=== PATIENT | male | born 1955 | race Caucasian/White ===

== ENCOUNTER → 2021-02-11 12:18 | Outpatient (BNVA) | payer MEDICARE, OTHER, SELFPAY | PROVIDERS: Visit Provider Nurse Practitioner | DX: R53.83 Other fatigue (principal); B88.2 Other arthropod infestations | CPT/HCPCS: 85025; 86000; 86618; 86666; 86757 ==

== ENCOUNTER 2021-02-15 10:37 | Emergency (ER) | payer MEDICARE, OTHER, SELFPAY ==
[2021-02-15 11:08] VITALS: BP 126/83; PULSE 99; RESP 18; TEMP 36.5; O2SAT 90; BMI 39.8
[2021-02-15 11:20] VITALS: BP 126/83; PULSE 99; RESP 18; O2SAT 91
--- NOTE | 2021-02-15 11:25 | XRR_ITS ---
PROCEDURE INFORMATION: Exam: XR Chest Exam date and time: 02/15/2021 11:25 AM Age: 65 years old Clinical indication: Shortness of breath; Additional info: Cough, SOB TECHNIQUE: Imaging protocol: XR of the chest. Views: 1 view. COMPARISON: No relevant prior studies available. FINDINGS: Lungs: Multifocal bilateral patchy pulmonary opacities. These are most prominent in a peripheral distribution in the mid to lower lung merritt. Pleural spaces: Unremarkable. No pleural effusion. No pneumothorax. Heart/Mediastinum: Unremarkable. No cardiomegaly. Bones/joints: Unremarkable. XR/XR chest 1V portable [id number] IMPRESSION: There are patchy bilateral pulmonary opacities consistent with pneumonia.
--- NOTE | 2021-02-15 11:33 | ECG_ITS ---
[facility] Test Date: 2021-02-15 Pat Name: Angus Rutherford Department: Room: Gender: Male [employer] Machine: : 1955 Requested By: Mateus Ramirez I Order Number: [id number] Kaila MD: Renan Da Silva M.D. Measurements Intervals Gallion Rate: 115 P: GA: QRS: -4 QRSD: 81 T: -14 QT: 316 QTc: 438 Interpretive Statements ATRIAL FIBRILLATION WITH RAPID VENTRICULAR RESPONSE ABNORMAL RHYTHM ECG No previous ECG available for comparison Electronically Signed On 02-16-2021 9:43:02 CDT by Renan Da Silva M.D. [email or web address]
[2021-02-15 12:19] LABS: Basophils % 0.2 %; Hematocrit 48.6 % (42.0-52.0); Hemoglobin 16.3 g/dL (11.7-16.6); Lymphocytes % 30.9 %; Mean Corpuscular HGB Conc 33.5 g/dL (30.0-36.0); Mean Corpuscular Hemoglobin 31.3 pg (28.0-34.0); Mean Corpuscular Volume 93.3 fL (80-94); Mean Platelet Volume 11.2 fL (7.4-10.4); Monocytes # 0.2 10^3/uL (0.2-0.9); Monocytes % 3.6 %; Neutrophils # 3.78 10^3/uL (1.8-7.7); Neutrophils % 64.8 %; Nucleated Red Blood Cells % 0 %; Platelet Count 139 10^3/cmm (130-400); Red Blood Count 5.21 10^6/uL (4.1-5.3); Red Cell Distribution Width 12.5 % (12.1-15.1); White Blood Count 5.8 10^3/uL (4.0-10.0)
--- NOTE | 2021-02-15 12:41 | ED_ITS ---
HPI - General Adult General: Chief complaint: General Medical Stated complaint: body aches, possible tick fever Time Seen by Provider: 02/15/21 11:09 Source: patient and family () Mode of arrival: ambulatory Limitations: no limitations History of Present Illness: HPI narrative: Patient is a 65-year-old male who presents to the emergency department with generalized body aches, weakness, loss of appetite, loss of energy, and some shortness of breath. He states that shortly before his symptoms started he noticed the fatigue on his foot but he does not think he was fully large teen and it was not engorged. He saw his primary care provider who checked a tick panel on him and started him on doxycycline. Patient states that he has not obtained any significant improvemen t and per his he has been getting more sick. He denies a fever. He denies any sick exposures and has not had the Covid vaccine. He does think he may have had the infection in August 2019 Onset (ago): week(s) (2) Pain Consistency: constant Relieving factors: none Exacerbating factors: none Associated symptoms: Reports cough, decreased appetite, dyspnea, headache(s), malaise, nausea and short of breath; Deny chest pain, confusion, diaphoresis, fevers/chills, rash, palpitations, seizures, syncope or vomiting Treatments prior to arrival: none Review of Systems General: Reports: 10 or more systems reviewed and unremarkable except in HPI and below Const: Reports: malaise; Denies: diaphoresis Card: Denies: chest pain, palpitations or syncope Resp: Reports: dyspnea GI: Reports: nausea; Denies: vomiting Skin/Breast: Denies: rash Neuro: Reports: headache(s); Denies: confusion PFSH ED PFSH: Social History (Reviewed 02/16/21 @ 01:01 by Mateus Ramirez MD, [facility]) Smoking and tobacco status: never smoked Physical Exam Const: COMMON NORMALS: no acute distress, average body habitus, patient oriented x3, no limitations, healthy appearing, alert and well nourished HENMT: COMMON NORMALS: normocephalic, atraumatic and moist oral mucous membranes HEAD & SCALP: normocephalic and atraumatic Neck/C-Spine: COMMON NORMALS: no meningeal signs and no JVD Resp: COMMON NORMALS: normal respiratory effort, No retractions, No use of accessory muscles, clear to auscultation bilaterally and percussion normal AUSCULTATION: clear to auscultation bilaterally PERCUSSION: percussion normal Cardio: COMMON NORMALS: no JVD, regular rate, regular rhythm, S1 normal heart sound present, S2 normal heart sound present, No gallops present (Cardio), No clicks present (Cardio), No murmurs present (Cardio), No rub (Cardio) and Peripheral pulses 2+ throughout RATE: regular rate RHYTHM: regular rhythm HEART SOUNDS: S1 normal heart sound present and S2 normal heart sound present PERIPHERAL PULSES: Peripheral pulses 2+ throughout GI: COMMON NORMALS: Normal to inspection, nondistended, normoactive bowel sounds present, Soft to palpation, non-tender, No hepatosplenomegaly present, no masses and no bruits PALPATION: Yes Soft to palpation and Yes No hepatosplenomegaly present Extremity: COMMON NORMALS: normal to inspection, full ROM, capillary refill normal, no calf tenderness and no pedal edema Neuro: COMMON NORMALS: patient oriented x3 SENSORIUM/ORIENTATION: Yes alert MENINGEAL SIGNS: Yes no meningeal signs Skin: COMMON NORMALS: no rashes or lesions noted, no wounds, turgor normal, no jaundice, no petechiae and no mottling GENERAL SKIN EXAM: no rashes or lesions noted and turgor normal Course Reevaluation(s): Reevaluation #1: Discussed his lab and imaging findings with him. Explained that he is positive for COVID-19. Because his D-dimer is significantly elevated I advised that we obtain a CTA of his chest to rule out a PE. Also discussed disposition. Offered him hospital admission since he is hypoxic, however the patient declined and would like to be discharged home with home oxygen. He understands to return for any worsening symptoms. Time: 14:35 Reevaluation #2: Discussed the CTA findings with him, negative for PE but shows signs of Covid pneumonia. He still wants to be discharged home and I will discharge him home with a prescription for dexamethasone since his inflammatory markers are higher. Time: 17:41 Vital Signs: Vital signs: Vital Signs Temperature 97.7 F 02/15/21 11:08 Pulse Rate 108 H 02/15/21 16:50 Respiratory Rate 27 H 02/15/21 16:50 Blood Pressure 127/75 02/15/21 16:50 Pulse Oximetry 92 02/15/21 16:50 MDM - General Adult MDM Narrative: Medical decision making narrative: 65-year-old male who presents to the emergency department with body aches and feeling unwell. He thinks he may have taken fever. Evaluation in the emergency department is shows that he tested positive for COVID-19. D-dimer was also significantly elevated and a CTA of his chest done was negative for PE but does show his Covid pneumonia. Patient opted not to be admitted to the hospital and wants to be treated on an outpatient basis. He understands to monitor his pulse oximetry and to return for any worsening symptoms. Medical Records: Attestation: I reviewed the patient's medical records. Lab Data: Attestation: I reviewed the patient's lab results. Labs: Lab Results 02/15/21 02/15/21 02/15/21 Range/Units 11:58 11:58 11:58 WBC 5.8 (4.0-10.0) 10^3/ uL RBC 5.21 (4.1-5.3) 10^6/u L Hgb 16.3 (11.7-16.6) g/dL Hct 48.6 (42.0-52.0) % MCV 93.3 (80-94) fL MCH 31.3 (28.0-34.0) pg MCHC 33.5 (30.0-36.0) g/dL RDW 12.5 (12.1-15.1) % Plt Count 139 (130-400) 10^3/c mm MPV 11.2 H (7.4-10.4) fL Neut % (Auto) 64.8 % Lymph % (Auto) 30.9 % [place] % (Auto) 3.6 % Eos % (Auto) 0.0 % Baso % (Auto) 0.2 % Neut # (Auto) 3.78 (1.8-7.7) 10^3/u L Lymph # (Auto) 1.8 (0.8-4.8) 10^3/u L [place] # (Auto) 0.2 (0.2-0.9) 10^3/u L Eos # (Auto) 0.0 (0.0-0.8) 10^3/u L Baso # (Auto) 0.0 (0.0-0.1) 10^3/u L Nucleated RBC % (a uto) 0 % Nucleated RBCs # 0.0 /100WBC D-Dimer (0-0.59) ug/mIFE U Sodium 133 L (136-145) mmol/L Potassium 4.0 (3.5-5.1) mmol/L Chloride 99 (98-107) mmol/L Carbon Dioxide 23 (22-29) mmol/L Anion Gap 15.0 (5-19) BUN 15 (8-23) mg/dL Creatinine 1.2 (0.7-1.2) mg/dL GFR Calculation 60.8 L (90-130) mL/min Glucose 117 H (65-115) mg/dL Calculated Osmolal ity 278 L (285-295) mOsm/k g Lactic Acid 1.9 (0.5-2.2) mmol/L Calcium 8.6 (8.5-10.5) mg/dL Total Bilirubin 0.8 (0.15-1.2) mg/dL AST 84 H (0-40) U/L ALT 48 H (0-41) U/L Alkaline Phosphata se 58 (40-130) IU/L C-Reactive Protein 39.8 H (0.0-4.9) mg/L Total Protein 6.6 (6.6-8.7) g/dL Albumin 3.5 (3.5-5.2) g/dL Globulin 3.1 (1.3-4.6) g/dL Procalcitonin 0.23 (0-0.5) ng/mL Influenza Type A A g (Negative) Influenza Type B A g (Negative) SARS-CoV-2 Ag (Rap id) (Negative) 02/15/21 02/15/21 02/15/21 Range/Units 12:00 12:00 13:10 WBC (4.0-10.0) 10^3/ uL RBC (4.1-5.3) 10^6/u L Hgb (11.7-16.6) g/dL Hct (42.0-52.0) % MCV (80-94) fL MCH (28.0-34.0) pg MCHC (30.0-36.0) g/dL RDW (12.1-15.1) % Plt Count (130-400) 10^3/c mm MPV (7.4-10.4) fL Neut % (Auto) % Lymph % (Auto) % Concord[place] % (Auto) % Eos % (Auto) % Baso % (Auto) % Neut # (Auto) (1.8-7.7) 10^3/u L Lymph # (Auto) (0.8-4.8) 10^3/u L Concordia # (Auto) (0.2-0.9) 10^3/u L Eos # (Auto) (0.0-0.8) 10^3/u L Baso # (Auto) (0.0-0.1) 10^3/u L Nucleated RBC % (a uto) % Nucleated RBCs # /100WBC D-Dimer 3.61 H (0-0.59) ug/mIFE U Sodium (136-145) mmol/L Potassium (3.5-5.1) mmol/L Chloride (98-107) mmol/L Carbon Dioxide (22-29) mmol/L Anion Gap (5-19) BUN (8-23) mg/dL Creatinine (0.7-1.2) mg/dL GFR Calculation (90-130) mL/min Glucose (65-115) mg/dL Calculated Osmolal ity (285-295) mOsm/k g Lactic Acid (0.5-2.2) mmol/L Calcium (8.5-10.5) mg/dL Total Bilirubin (0.15-1.2) mg/dL AST (0-40) U/L ALT (0-41) U/L Alkaline Phosphata se (40-130) IU/L C-Reactive Protein (0.0-4.9) mg/L Total Protein (6.6-8.7) g/dL Albumin (3.5-5.2) g/dL Globulin (1.3-4.6) g/dL Procalcitonin (0-0.5) ng/mL Influenza Type A A g Negative (Negative) Influenza Type B A g Negative (Negative) SARS-CoV-2 Ag (Rap id) Positive H (Negative) Imaging Data^: CTA Chest: Attestation: I personally reviewed and interpreted this imaging study as follows: Radiologist's impression: [id number], [place] [id number] Scan ReportSigned Patient: Angus Rutherford #: [id number]: 5Acct#:[id number]/Sex: 65 / MADM Date: 02/15/21Loc: ERRoom/Bed:Attending Dr: Ordering Provider/Ordering MD: Mateus Ramirez MD, [facility] Date of Service: 02/15/21 Procedure(s): CT angio chest PE protcl [id number] Accession Number(s): [id number] Report Number: [id number] PROCEDURE INFORMATION: Exam: CTA Chest With Contrast Exam date and time: 02/15/2021 2:34 PM Age: 65 years old Clinical indication: Shortness of breath; Additional info: Covid +, elevated d-dimer, SOB, hypoxia TECHNIQUE: Imaging protocol: Computed tomographic angiography of the chest with contrast. 3D rendering (Not supervised by radiologist): MIP and/or 3D reconstructed images were created by the technologist. Radiation optimization: All CT scans at this facility use at least one of these dose optimization techniques: automated exposure control; mA and/or kV adjustment per patient size (includes targeted exams where dose is matched to clinical indication); or iterative reconstruction. Contrast material: OMNI 350; Contrast volume: 86 ml; Contrast route: INTRAVENOUS (IV); COMPARISON: CR (CHEST, ) 02/15/2021 12:33 PM RADIATION DOSE METRICS: Total DLP (mGy-cm): 548.61 FINDINGS: Pulmonary arteries: Normal. No pulmonary emboli. Aorta: Unremarkable. No aortic aneurysm. No aortic dissection. Lungs: Multifocal bilateral patchy pulmonary infiltrates primarily in a peripheral distribution. Pleural spaces: Unremarkable. No pneumothorax. No pleural effusion. Heart: Unremarkable. No cardiomegaly. No pericardial effusion. Mediastinal space: There are postoperative changes at the gastroesophageal junction and proximal stomach. Lymph nodes: Unremarkable. No enlarged lymph nodes. Bones/joints: Unremarkable. No acute fracture. Soft tissues: Unremarkable. CT/CT angio chest PE protcl [id number] IMPRESSION: Multifocal bilateral patchy pulmonary infiltrates primarily in a peripheral distribution.Commonly reported imaging features of COVID-19 pneumonia are present. Other processes such as influenza pneumonia and organizing pneumonia, as can be seen with drug toxicity and connective tissue disease, can cause a similar imaging pattern. (Reference: Leeroy) REFERENCES: Leeroy S, et al., Radiological Society of [place] Unique Expert Consensus Statement on Reporting Chest CT Findings Related to COVID-19. Endorsed by the Society of Thoracic Radiology, the [place] [employer], and RSNA. Published November 15, 2019. Radiation Dose CTDIVOL = (mGy): DLP = 548.61 (mGy-cm) Dictated By:Gardenia Garcia MDSigned By:Gardenia Garcia MDSigned Date/Time:02/15/21 1724DD/ 1723 CXR: Attestation: I personally reviewed and interpreted this imaging study as follows: Radiologist's impression: [address] [id number] ReportSigned Patient: Angus Rutherford #: [id number]: 5Acct#:[id number]/Sex: 65 / MADM Date: 02/15/21Loc: ERRoom/Bed:Attending Dr: Ordering Provider/Ordering MD: Mateus Ramirez MD, [facility] Date of Service: 02/15/21 Procedure(s): XR chest 1V portable [id number] Accession Number(s): [id number] Report Number: [id number] PROCEDURE INFORMATION: Exam: XR Chest Exam date and time: 02/15/2021 11:25 AM Age: 65 years old Clinical indication: Shortness of breath; Additional info: Cough, SOB TECHNIQUE: Imaging protocol: XR of the chest. Views: 1 view. COMPARISON: No relevant prior studies available. FINDINGS: Lungs: Multifocal bilateral patchy pulmonary opacities. These are most prominent in a peripheral distribution in the mid to lower lung merritt. Pleural spaces: Unremarkable. No pleural effusion. No pneumothorax. Heart/Mediastinum: Unremarkable. No cardiomegaly. Bones/joints: Unremarkable. XR/XR chest 1V portable [id number] IMPRESSION: There are patchy bilateral pulmonary opacities consistent with pneumonia. Dictated By:Gardenia Garcia MDSigned By:Gardenia Garcia MDSigned Date/Time:02/15/21 1355DD/ 1353 EKG Data^: EKG 1: Attestation: I personally reviewed and interpreted this EKG as follows: EKG interpretation date: 02/15/21 EKG interpretation time: 11:42 Prior EKG tracings: not available for review Interpretation: Atrial fibrillation with RVR. Heart rate [address] changes. Computer generated interpretation: Chest X-Ray 02/15/21 11:25 IMPRESSION: There are patchy bilateral pulmonary opacities consistent with pneumonia. Chest CTA 02/15/21 14:34 IMPRESSION: Multifocal bilateral patchy pulmonary infiltrates primarily in a peripheral distribution.Commonly reported imaging features of COVID-19 pneumonia are present. Other processes such as influenza pneumonia and organizing pneumonia, as can be seen with drug toxicity and connective tissue disease, can cause a similar imaging pattern. (Reference: Leeroy) REFERENCES: Leeroy Davis et al., Radiological Society of [place] Unique Expert Consensus Statement on Reporting Chest CT Findings Related to COVID-19. Endorsed by the Society of Thoracic Radiology, the [place] [employer], and RSNA. Published November 15, 2019. Radiation Dose CTDIVOL = (mGy): DLP = 548.61 (mGy-cm) Discharge Plan Discharge Patient Disposition: Home Clinical Impression: Pneumonia due to 2019 novel coronavirus, Hypoxia Condition: Stable Prescriptions: New dexamethasone 6 mg tablet 6 mg PO DAILY Qty: 10 RF: 0 Continued doxycycline hyclate 100 mg capsule 100 mg PO BID 10 Days Qty: 20 RF: 0 Discharge Orders: Discharge ED (Routine); Ordered 02/15/21 Ordered By: Mateus Ramirez Other Ambulatory Orders: DME: Oxygen (Order) Location: None Selected Ordered By: Mateus Ramirez Discharge Diet: Usual diet Discharge Activity: Increase activity as tolerated Patient Instructions: Viral Pneumonia (ED) Activity Restrictions/Additional Instructions: Return for any new or worsening symptoms, especially if your oxygen level remains below 90% for sustained periods. Use the oxygen as prescribed to keep your oxygen saturations up. Follow-up with your primary care provider by telemedicine within 3 days for further evaluation. Take the steroids as prescribed. You need to quarantine for 14 days after symptoms started. Coding Level of Care Code ED Configuration Management Specialist for Roshan Leal
[2021-02-15 12:46] LABS: Alanine Aminotransferase 48 U/L (0-41); Albumin Level 3.5 g/dL (3.5-5.2); Alkaline Phosphatase 58 IU/L (40-130); Aspartate Amino Transferase 84 U/L (0-40); Blood Urea Nitrogen 15 mg/dL (8-23); C Reactive Protein 39.8 mg/L (0.0-4.9); Calcium 8.6 mg/dL (8.5-10.5); Carbon Dioxide 23 mmol/L (22-29); Chloride 99 mmol/L (98-107); Globulin 3.1 g/dL (1.3-4.6); Glomerular Filtration Rate 60.8 mL/min (90-130); Glucose 117 mg/dL (65-115); Osmolality Calculated 278 mOsm/kg (285-295); Sodium 133 mmol/L (136-145); Total Bilirubin 0.8 mg/dL (0.15-1.2); Total Protein 6.6 g/dL (6.6-8.7)
[2021-02-15 12:47] LABS: Lactic Sepsis W/Reflex 1.9 mmol/L (0.5-2.2)
[2021-02-15 12:50] LABS: SARS Covid-2 Antigen Positive (Negative)
[2021-02-15 12:51] LABS: Slide Review Slide Review Perform
[2021-02-15 12:53] LABS: Procalcitonin 0.23 ng/mL (0-0.5)
[2021-02-15 13:06] LABS: Influenza A by IFA Negative (Negative); Influenza B by IFA Negative (Negative)
[2021-02-15 13:49] LABS: D Dimer 3.61 ug/mIFEU (0-0.59)
[2021-02-15 13:52] LABS: Lymphocytes # 1.8 10^3/uL (0.8-4.8)
[2021-02-15 14:03] VITALS: BP 134/94; PULSE 128; RESP 22; O2SAT 89
[2021-02-15 14:07] VITALS: O2SAT 92
--- NOTE | 2021-02-15 14:09 | PC.NURSE ---
notified Dr. Lord of pt's O2 saturation of 89% on RA and application of 2LNC;
--- NOTE | 2021-02-15 14:34 | CTR_ITS ---
PROCEDURE INFORMATION: Exam: CTA Chest With Contrast Exam date and time: 02/15/2021 2:34 PM Age: 65 years old Clinical indication: Shortness of breath; Additional info: Covid +, elevated d-dimer, SOB, hypoxia TECHNIQUE: Imaging protocol: Computed tomographic angiography of the chest with contrast. 3D rendering (Not supervised by radiologist): MIP and/or 3D reconstructed images were created by the technologist. Radiation optimization: All CT scans at this facility use at least one of these dose optimization techniques: automated exposure control; mA and/or kV adjustment per patient size (includes targeted exams where dose is matched to clinical indication); or iterative reconstruction. Contrast material: OMNI 350; Contrast volume: 86 ml; Contrast route: INTRAVENOUS (IV); COMPARISON: CR (CHEST, ) 02/15/2021 12:33 PM RADIATION DOSE METRICS: Total DLP (mGy-cm): 548.61 FINDINGS: Pulmonary arteries: Normal. No pulmonary emboli. Aorta: Unremarkable. No aortic aneurysm. No aortic dissection. Lungs: Multifocal bilateral patchy pulmonary infiltrates primarily in a peripheral distribution. Pleural spaces: Unremarkable. No pneumothorax. No pleural effusion. Heart: Unremarkable. No cardiomegaly. No pericardial effusion. Mediastinal space: There are postoperative changes at the gastroesophageal junction and proximal stomach. Lymph nodes: Unremarkable. No enlarged lymph nodes. Bones/joints: Unremarkable. No acute fracture. Soft tissues: Unremarkable. CT/CT angio chest PE protcl [id number] IMPRESSION: Multifocal bilateral patchy pulmonary infiltrates primarily in a peripheral distribution.Commonly reported imaging features of COVID-19 pneumonia are present. Other processes such as influenza pneumonia and organizing pneumonia, as can be seen with drug toxicity and connective tissue disease, can cause a similar imaging pattern. (Reference: Leeroy) REFERENCES: Leeroy Davis et al., Radiological Society [place] Expert Consensus Statement on Reporting Chest CT Findings Related to COVID-19. Endorsed by the Society of Thoracic Radiology, the [place] [employer], and RSNA. Published November 15, 2019. Radiation Dose CTDIVOL = (mGy): DLP = 548.61 (mGy-cm)
[2021-02-15 16:50] VITALS: BP 127/75; PULSE 108; RESP 27; O2SAT 92
[2021-02-15] MEDS: iohexol 350 mg/mL 100 mL Btl IV (17:09)
== END 2021-02-15 18:18 | disposition home or self-care (01) ==
PROVIDERS: Emergency Provider Family Medicine
DX: U07.1 COVID-19 (principal); J12.82 Pneumonia due to coronavirus disease 2019; R09.02 Hypoxemia
CPT/HCPCS: 71045; 71275; 80053; 83605; 84145; 85025; 85378; 86140; 87426; 87804; 93005; 99284; Q9967

== ENCOUNTER 2021-05-05 12:36 | Outpatient (CLI) | payer MEDICARE, OTHER, SELFPAY ==
[2021-05-05 13:06] LABS: Hematocrit 62.1 % (42.0-52.0); Hemoglobin 18.1 g/dL (11.7-16.6); Mean Corpuscular HGB Conc 29.1 g/dL (30.0-36.0); Mean Corpuscular Hemoglobin 29.6 pg (28.0-34.0); Mean Corpuscular Volume 101.6 fl (80-94); Platelet Count 72 10^3/cmm (130-400); Red Blood Count 6.11 10^6/uL (4.1-5.3); Red Cell Distribution Width 18.8 % (12.1-15.1); White Blood Count 1.9 10^3/uL (4.0-10.0)
[2021-05-05 14:11] LABS: Lymphocytes 43 %; Segmented Neutrophils 54 %; Total Cells Counted 100 (0-100)
[2021-05-05 14:12] LABS: Absolute Neutrophil 1.1 10^3/cmm (1.4-6.5); Eosinophils 0 %; Lymphocytes Absolute 0.8 10^3/cmm (1.2-3.4); Platelet Estimate Decreased (Normal)
== END 2021-05-05 12:37 | disposition home or self-care (01) ==
LOC: LAB 12:41
PROVIDERS: Visit Provider Physical Medicine & Rehabilitation
DX: U07.1 COVID-19 (principal); E11.9 Type 2 diabetes mellitus without complications; I10 Essential (primary) hypertension; Z79.899 Other long term (current) drug therapy; G62.9 Polyneuropathy, unspecified
CPT/HCPCS: 85007; 85027

== ENCOUNTER 2021-05-06 09:53 | Outpatient (CLI) | payer MEDICARE, OTHER, SELFPAY ==
[2021-05-06 10:27] LABS: Alanine Aminotransferase 10 U/L (0-41); Albumin Level 3.1 g/dL (3.5-5.2); Alkaline Phosphatase 81 IU/L (40-130); Anion Gap 14.1 (5-19); Aspartate Amino Transferase 19 U/L (0-40); Blood Urea Nitrogen 6 mg/dL (8-23); C Reactive Protein 2.1 mg/L (0.0-4.9); Calcium 8.6 mg/dL (8.5-10.5); Carbon Dioxide 25 mmol/L (22-29); Chloride 107 mmol/L (98-107); Globulin 3.2 g/dL (1.3-4.6); Glomerular Filtration Rate 134.8 mL/min (90-130); Glucose 67 mg/dL (65-115); Osmolality Calculated 292 mOsm/kg (285-295); Potassium 3.1 mmol/L (3.5-5.1); Sodium 143 mmol/L (136-145); Total Bilirubin 0.3 mg/dL (0.15-1.2); Total Protein 6.3 g/dL (6.6-8.7)
== END 2021-05-06 09:54 | disposition home or self-care (01) ==
PROVIDERS: PCP Physical Medicine & Rehabilitation; Visit Provider Physical Medicine & Rehabilitation
DX: U07.1 COVID-19 (principal); E11.9 Type 2 diabetes mellitus without complications; I10 Essential (primary) hypertension; G62.9 Polyneuropathy, unspecified
CPT/HCPCS: 80053; 80202; 86140

== ENCOUNTER 2021-05-12 13:04 | Outpatient (CLI) | payer MEDICARE, OTHER, SELFPAY ==
[2021-05-12 13:39] LABS: Hematocrit 40.2 % (42.0-52.0); Hemoglobin 12.4 g/dL (11.7-16.6); Mean Corpuscular HGB Conc 30.8 g/dL (30.0-36.0); Mean Corpuscular Hemoglobin 29.2 pg (28.0-34.0); Mean Corpuscular Volume 94.6 fl (80-94); Mean Platelet Volume 11.3 fL (7.4-10.4); Platelet Count 244 10^3/cmm (130-400); Red Blood Count 4.25 10^6/uL (4.1-5.3); Red Cell Distribution Width 16.8 % (12.1-15.1); White Blood Count 6.3 10^3/uL (4.0-10.0)
[2021-05-12 14:01] LABS: Absolute Segmented Neutrophil 2.3 10/cmm (1.6-7.1); Segmented Neutrophils 36 %; Total Cells Counted 100 (0-100)
[2021-05-12 14:02] LABS: Absolute Eosinophils 0.1 10^3/cmm (0.0-0.7); Absolute Neutrophil 2.3 10^3/cmm (1.4-6.5); Band Neutrophils Absolute 0.1 10^3/cmm (0.0-1.2); Eosinophils 3 %; Lymphocytes 57 %; Lymphocytes Absolute 3.6 10^3/cmm (1.2-3.4); Monocytes Absolute 0.2 10^3/cmm (0.1-0.6); Platelet Estimate Normal (Normal)
[2021-05-12 14:09] LABS: Alanine Aminotransferase 9 U/L (0-41); Albumin Level 3.3 g/dL (3.5-5.2); Alkaline Phosphatase 77 IU/L (40-130); Anion Gap 13.6 (5-19); Aspartate Amino Transferase 16 U/L (0-40); Blood Urea Nitrogen 6 mg/dL (8-23); C Reactive Protein 2.3 mg/L (0.0-4.9); Carbon Dioxide 25 mmol/L (22-29); Chloride 107 mmol/L (98-107); Glomerular Filtration Rate 166.4 mL/min (90-130); Glucose 85 mg/dL (65-115); Osmolality Calculated 291 mOsm/kg (285-295); Potassium 3.6 mmol/L (3.5-5.1); Sodium 142 mmol/L (136-145); Total Bilirubin 0.2 mg/dL (0.15-1.2); Total Protein 6.3 g/dL (6.6-8.7); Vancomycin Trough 20.7 ug/mL (10-15)
== END 2021-05-12 13:05 | disposition home or self-care (01) ==
LOC: LAB 13:11
PROVIDERS: PCP Physical Medicine & Rehabilitation; Visit Provider Physical Medicine & Rehabilitation
DX: M86.9 Osteomyelitis, unspecified; J18.9 Pneumonia, unspecified organism; U07.1 COVID-19
CPT/HCPCS: 80053; 80202; 85007; 85027; 86140

== ENCOUNTER 2021-07-21 14:13 | Outpatient (CLI) | payer MEDICARE, OTHER, SELFPAY | END 2021-07-21 14:14 | disposition home or self-care (01) | LOC: WOUND 14:14 | PROVIDERS: PCP Physical Medicine & Rehabilitation; Visit Provider Emergency Medicine | DX: L89.154 Pressure ulcer of sacral region, stage 4 (principal) | CPT/HCPCS: 11043; 97605; A6237; A6250; G0463 ==

== ENCOUNTER 2021-07-28 13:53 | Outpatient (CLI) | payer MEDICARE, OTHER, SELFPAY | END 2021-07-28 13:54 | disposition home or self-care (01) | LOC: WOUND 13:54 | PROVIDERS: PCP Physical Medicine & Rehabilitation; Visit Provider Nurse Practitioner Family | DX: L89.154 Pressure ulcer of sacral region, stage 4 (principal) | CPT/HCPCS: 11042; 97605; A6237; A6250 ==

== ENCOUNTER 2021-08-04 15:09 | Outpatient (CLI) | payer MEDICARE, OTHER, SELFPAY | END 2021-08-04 15:10 | disposition home or self-care (01) | LOC: WOUND 15:10 | PROVIDERS: PCP Physical Medicine & Rehabilitation; Visit Provider Emergency Medicine | DX: L89.154 Pressure ulcer of sacral region, stage 4 (principal) | CPT/HCPCS: 11042; 97605; A6237; A6250 ==

== ENCOUNTER 2021-08-11 15:11 | Outpatient (CLI) | payer MEDICARE, OTHER, SELFPAY | END 2021-08-11 15:12 | disposition home or self-care (01) | LOC: WOUND 15:12 | PROVIDERS: PCP Physical Medicine & Rehabilitation; Visit Provider Nurse Practitioner Family | DX: L89.154 Pressure ulcer of sacral region, stage 4 (principal) | CPT/HCPCS: 97605; A6237; A6250 ==

== ENCOUNTER 2021-08-18 15:10 | Outpatient (CLI) | payer MEDICARE, OTHER, SELFPAY | END 2021-08-18 15:11 | disposition home or self-care (01) | LOC: WOUND 15:11 | PROVIDERS: PCP Physical Medicine & Rehabilitation; Visit Provider Nurse Practitioner Family | DX: L89.154 Pressure ulcer of sacral region, stage 4 (principal) | CPT/HCPCS: 11042; 97605; A6237 ==

== ENCOUNTER 2021-08-26 14:40 | Outpatient (RCR) | payer MEDICARE, OTHER, SELFPAY | END 2021-09-22 23:59 | disposition home or self-care (01) | LOC: WOUND 14:40 | PROVIDERS: PCP Physical Medicine & Rehabilitation; Visit Provider Nurse Practitioner Family | DX: L89.154 Pressure ulcer of sacral region, stage 4 (principal) | CPT/HCPCS: 11042; A6220 ==

== ENCOUNTER 2021-09-02 14:45 | Outpatient (CLI) | payer MEDICARE, OTHER, SELFPAY | END 2021-09-02 14:46 | disposition home or self-care (01) | LOC: WOUND 14:47 | PROVIDERS: PCP Physical Medicine & Rehabilitation; Visit Provider Emergency Medicine | DX: L89.154 Pressure ulcer of sacral region, stage 4 (principal) | CPT/HCPCS: 11042; 97605; A6237; A6250 ==

== ENCOUNTER 2021-09-10 11:08 | Outpatient (CLI) | payer MEDICARE, OTHER, SELFPAY | END 2021-09-10 11:09 | disposition home or self-care (01) | LOC: WOUND 11:11 | PROVIDERS: PCP Physical Medicine & Rehabilitation; Visit Provider Nurse Practitioner Family | DX: L89.154 Pressure ulcer of sacral region, stage 4 (principal) | CPT/HCPCS: 11042; 97605; A6237; A6250 ==

== ENCOUNTER 2021-09-17 11:02 | Outpatient (CLI) | payer MEDICARE, OTHER, SELFPAY | END 2021-09-17 11:03 | disposition home or self-care (01) | LOC: WOUND 11:03 | PROVIDERS: PCP Physical Medicine & Rehabilitation; Visit Provider Thoracic Surgery (Cardiothoracic Vascular Surgery) | DX: L89.154 Pressure ulcer of sacral region, stage 4 (principal) | CPT/HCPCS: 15271; A6237; A6250; Q4187 ==

== ENCOUNTER 2021-10-01 15:22 | Outpatient (CLI) | payer MEDICARE, OTHER, SELFPAY | END 2021-10-01 15:23 | disposition home or self-care (01) | LOC: WOUND 15:25 | PROVIDERS: PCP Physical Medicine & Rehabilitation; Visit Provider Thoracic Surgery (Cardiothoracic Vascular Surgery) | DX: L89.154 Pressure ulcer of sacral region, stage 4 (principal) | CPT/HCPCS: 15271; 97605; A6237; A6250; Q4187 ==

== ENCOUNTER 2021-10-08 14:48 | Outpatient (CLI) | payer MEDICARE, OTHER, SELFPAY | END 2021-10-08 14:49 | disposition home or self-care (01) | LOC: WOUND 14:49 | PROVIDERS: PCP Physical Medicine & Rehabilitation; Visit Provider Thoracic Surgery (Cardiothoracic Vascular Surgery) | DX: L89.154 Pressure ulcer of sacral region, stage 4 (principal) | CPT/HCPCS: 15271; A6237; A6250; Q4187 ==

== ENCOUNTER 2021-10-22 14:42 | Outpatient (CLI) | payer MEDICARE, OTHER, SELFPAY | END 2021-10-22 14:43 | disposition home or self-care (01) | LOC: WOUND 14:43 | PROVIDERS: PCP Physical Medicine & Rehabilitation; Visit Provider Thoracic Surgery (Cardiothoracic Vascular Surgery) | DX: I96 Gangrene, not elsewhere classified (principal); L89.154 Pressure ulcer of sacral region, stage 4 | CPT/HCPCS: 15271; A6237; A6250; Q4187 ==

== ENCOUNTER 2021-10-29 11:01 | Outpatient (CLI) | payer MEDICARE, OTHER, SELFPAY | END 2021-10-29 11:02 | disposition home or self-care (01) | LOC: WOUND 11:02 | PROVIDERS: PCP Physical Medicine & Rehabilitation; Visit Provider Thoracic Surgery (Cardiothoracic Vascular Surgery) | DX: L89.154 Pressure ulcer of sacral region, stage 4 (principal) | CPT/HCPCS: 15271; 97597; 97605; A6237; A6250; Q4187 ==

== ENCOUNTER 2021-11-05 10:03 | Outpatient (CLI) | payer MEDICARE, OTHER, SELFPAY | END 2021-11-05 10:04 | disposition home or self-care (01) | LOC: WOUND 10:04 | PROVIDERS: PCP Physical Medicine & Rehabilitation; Visit Provider Thoracic Surgery (Cardiothoracic Vascular Surgery) | DX: L89.154 Pressure ulcer of sacral region, stage 4 (principal) | CPT/HCPCS: 11042; 97597; A6237; A6250 ==

== ENCOUNTER → 2021-11-12 10:14 | Outpatient (BNVA) | payer MEDICARE, OTHER, SELFPAY | PROVIDERS: PCP Physical Medicine & Rehabilitation; Visit Provider Thoracic Surgery (Cardiothoracic Vascular Surgery) | DX: L89.154 Pressure ulcer of sacral region, stage 4 (principal); I96 Gangrene, not elsewhere classified | CPT/HCPCS: 15271; A6237; A6250; Q4187 ==

== ENCOUNTER → 2021-11-19 10:42 | Outpatient (BNVA) | payer MEDICARE, OTHER, SELFPAY | PROVIDERS: PCP Physical Medicine & Rehabilitation; Visit Provider Thoracic Surgery (Cardiothoracic Vascular Surgery) | DX: I96 Gangrene, not elsewhere classified (principal); L89.154 Pressure ulcer of sacral region, stage 4 | CPT/HCPCS: 15271; 97605; A6250; Q4187 ==

== ENCOUNTER → 2021-11-26 11:08 | Outpatient (BNVA) | payer MEDICARE, OTHER, SELFPAY | PROVIDERS: PCP Physical Medicine & Rehabilitation; Visit Provider Thoracic Surgery (Cardiothoracic Vascular Surgery) | DX: I96 Gangrene, not elsewhere classified (principal); L89.154 Pressure ulcer of sacral region, stage 4 | CPT/HCPCS: 15271; 97605; A6237; A6250; Q4187 ==

== ENCOUNTER → 2021-12-03 11:00 | Outpatient (BNVA) | payer MEDICARE, OTHER, SELFPAY | PROVIDERS: PCP Physical Medicine & Rehabilitation; Visit Provider Thoracic Surgery (Cardiothoracic Vascular Surgery) | DX: I96 Gangrene, not elsewhere classified (principal); L89.154 Pressure ulcer of sacral region, stage 4 | CPT/HCPCS: 97597 ==

== ENCOUNTER → 2021-12-10 10:58 | Outpatient (BNVA) | payer MEDICARE, OTHER, SELFPAY | PROVIDERS: PCP Physical Medicine & Rehabilitation; Visit Provider Nurse Practitioner Family | DX: I96 Gangrene, not elsewhere classified (principal); L89.151 Pressure ulcer of sacral region, stage 1 | CPT/HCPCS: 11042 ==

== ENCOUNTER → 2021-12-17 10:45 | Outpatient (BNVA) | payer MEDICARE, OTHER, SELFPAY | PROVIDERS: PCP Physical Medicine & Rehabilitation; Visit Provider Thoracic Surgery (Cardiothoracic Vascular Surgery) | DX: I96 Gangrene, not elsewhere classified (principal); L89.154 Pressure ulcer of sacral region, stage 4 | CPT/HCPCS: 97597 ==

== ENCOUNTER → 2021-12-24 10:49 | Outpatient (BNVA) | payer MEDICARE, OTHER, SELFPAY | PROVIDERS: PCP Physical Medicine & Rehabilitation; Visit Provider Thoracic Surgery (Cardiothoracic Vascular Surgery) | DX: L89.154 Pressure ulcer of sacral region, stage 4 (principal); I96 Gangrene, not elsewhere classified | CPT/HCPCS: 15271; A6206; Q4110 ==

== ENCOUNTER → 2021-12-31 10:40 | Outpatient (BNVA) | payer MEDICARE, OTHER, SELFPAY | PROVIDERS: PCP Physical Medicine & Rehabilitation; Visit Provider Thoracic Surgery (Cardiothoracic Vascular Surgery) | DX: I96 Gangrene, not elsewhere classified (principal); L89.154 Pressure ulcer of sacral region, stage 4 | CPT/HCPCS: 97597 ==

== ENCOUNTER → 2022-01-07 10:40 | Outpatient (BNVA) | payer MEDICARE, OTHER, SELFPAY | PROVIDERS: PCP Physical Medicine & Rehabilitation; Visit Provider Thoracic Surgery (Cardiothoracic Vascular Surgery) | DX: I96 Gangrene, not elsewhere classified (principal); L89.154 Pressure ulcer of sacral region, stage 4 | CPT/HCPCS: 97597 ==

== ENCOUNTER → 2022-01-14 10:06 | Outpatient (BNVA) | payer MEDICARE, OTHER, SELFPAY | PROVIDERS: PCP Physical Medicine & Rehabilitation; Visit Provider Thoracic Surgery (Cardiothoracic Vascular Surgery) | DX: L89.154 Pressure ulcer of sacral region, stage 4 (principal); I96 Gangrene, not elsewhere classified | CPT/HCPCS: 97597 ==

== ENCOUNTER → 2022-01-21 10:54 | Outpatient (BNVA) | payer MEDICARE, OTHER, SELFPAY | PROVIDERS: PCP Physical Medicine & Rehabilitation; Visit Provider Thoracic Surgery (Cardiothoracic Vascular Surgery) | DX: I96 Gangrene, not elsewhere classified (principal); L89.154 Pressure ulcer of sacral region, stage 4 | CPT/HCPCS: 97597; A6212 ==

== ENCOUNTER → 2022-01-28 11:15 | Outpatient (BNVA) | payer MEDICARE, OTHER, SELFPAY | PROVIDERS: PCP Physical Medicine & Rehabilitation; Visit Provider Nurse Practitioner Family | DX: L89.154 Pressure ulcer of sacral region, stage 4 (principal); I96 Gangrene, not elsewhere classified | CPT/HCPCS: 11042 ==

== ENCOUNTER → 2022-02-04 10:54 | Outpatient (BNVA) | payer MEDICARE, OTHER, SELFPAY | PROVIDERS: PCP Physical Medicine & Rehabilitation; Visit Provider Nurse Practitioner Family | DX: I96 Gangrene, not elsewhere classified (principal); L89.154 Pressure ulcer of sacral region, stage 4 | CPT/HCPCS: 11042; A6212 ==

== ENCOUNTER → 2022-02-11 09:10 | Outpatient (BNVA) | payer MEDICARE, OTHER, SELFPAY | PROVIDERS: PCP Physical Medicine & Rehabilitation; Visit Provider Nurse Practitioner Family | DX: I96 Gangrene, not elsewhere classified (principal); L89.154 Pressure ulcer of sacral region, stage 4 | CPT/HCPCS: 11042; A6212 ==

== ENCOUNTER → 2022-02-18 09:27 | Outpatient (BNVA) | payer MEDICARE, OTHER, SELFPAY | PROVIDERS: PCP Physical Medicine & Rehabilitation; Visit Provider Thoracic Surgery (Cardiothoracic Vascular Surgery) | DX: I96 Gangrene, not elsewhere classified (principal); L89.154 Pressure ulcer of sacral region, stage 4 | CPT/HCPCS: 97597; A6212 ==

== ENCOUNTER → 2022-03-02 10:49 | Outpatient (BNVA) | payer MEDICARE, OTHER, SELFPAY | PROVIDERS: PCP Physical Medicine & Rehabilitation; Visit Provider Thoracic Surgery (Cardiothoracic Vascular Surgery) | DX: I96 Gangrene, not elsewhere classified (principal); L89.154 Pressure ulcer of sacral region, stage 4 | CPT/HCPCS: 97597; A6212 ==

== ENCOUNTER → 2022-03-11 10:12 | Outpatient (BNVA) | payer MEDICARE, OTHER, SELFPAY | PROVIDERS: PCP Physical Medicine & Rehabilitation; Visit Provider Thoracic Surgery (Cardiothoracic Vascular Surgery) | DX: I96 Gangrene, not elsewhere classified (principal); L89.154 Pressure ulcer of sacral region, stage 4 | CPT/HCPCS: 11042; A6212 ==

== ENCOUNTER → 2022-03-18 10:42 | Outpatient (BNVA) | payer MEDICARE, OTHER, SELFPAY | PROVIDERS: PCP Physical Medicine & Rehabilitation; Visit Provider Nurse Practitioner Family | DX: L89.154 Pressure ulcer of sacral region, stage 4 (principal); I96 Gangrene, not elsewhere classified | CPT/HCPCS: 11042; A6212 ==

== ENCOUNTER → 2022-03-25 12:56 | Outpatient (BNVA) | payer MEDICARE, OTHER, SELFPAY | PROVIDERS: PCP Physical Medicine & Rehabilitation; Visit Provider Nurse Practitioner Family | DX: I96 Gangrene, not elsewhere classified (principal); L89.154 Pressure ulcer of sacral region, stage 4 | CPT/HCPCS: 11042; A6212 ==

== ENCOUNTER → 2022-04-01 11:04 | Outpatient (BNVA) | payer MEDICARE, OTHER, SELFPAY | PROVIDERS: PCP Physical Medicine & Rehabilitation; Visit Provider Thoracic Surgery (Cardiothoracic Vascular Surgery) | DX: I96 Gangrene, not elsewhere classified (principal); L89.154 Pressure ulcer of sacral region, stage 4 | CPT/HCPCS: 11042 ==

== ENCOUNTER → 2022-04-08 10:40 | Outpatient (BNVA) | payer MEDICARE, OTHER, SELFPAY | PROVIDERS: PCP Physical Medicine & Rehabilitation; Visit Provider Thoracic Surgery (Cardiothoracic Vascular Surgery) | DX: I96 Gangrene, not elsewhere classified (principal); L89.154 Pressure ulcer of sacral region, stage 4 | CPT/HCPCS: 11042; A6021 ==

== ENCOUNTER → 2022-04-15 10:45 | Outpatient (BNVA) | payer MEDICARE, OTHER, SELFPAY | PROVIDERS: PCP Physical Medicine & Rehabilitation; Visit Provider Thoracic Surgery (Cardiothoracic Vascular Surgery) | DX: I96 Gangrene, not elsewhere classified (principal); L89.154 Pressure ulcer of sacral region, stage 4 | CPT/HCPCS: 97597 ==

== ENCOUNTER → 2022-04-22 10:42 | Outpatient (BNVA) | payer MEDICARE, OTHER, SELFPAY | PROVIDERS: PCP Physical Medicine & Rehabilitation; Visit Provider Thoracic Surgery (Cardiothoracic Vascular Surgery) | DX: I96 Gangrene, not elsewhere classified (principal); L89.154 Pressure ulcer of sacral region, stage 4 | CPT/HCPCS: 11042 ==

== ENCOUNTER → 2022-05-06 11:05 | Outpatient (BNVA) | payer MEDICARE, OTHER, SELFPAY | PROVIDERS: PCP Physical Medicine & Rehabilitation; Visit Provider Nurse Practitioner Family | DX: I96 Gangrene, not elsewhere classified (principal); L89.154 Pressure ulcer of sacral region, stage 4 | CPT/HCPCS: 11042; A6021 ==

== ENCOUNTER → 2022-05-20 11:33 | Outpatient (BNVA) | payer MEDICARE, OTHER, SELFPAY | PROVIDERS: PCP Physical Medicine & Rehabilitation; Visit Provider Thoracic Surgery (Cardiothoracic Vascular Surgery) | DX: I96 Gangrene, not elsewhere classified (principal); L89.154 Pressure ulcer of sacral region, stage 4 | CPT/HCPCS: 11042; A6021 ==

== ENCOUNTER → 2022-06-03 10:32 | Outpatient (BNVA) | payer MEDICARE, OTHER, SELFPAY | PROVIDERS: PCP Physical Medicine & Rehabilitation; Visit Provider Thoracic Surgery (Cardiothoracic Vascular Surgery) | DX: I96 Gangrene, not elsewhere classified (principal); L89.894 Pressure ulcer of other site, stage 4 | CPT/HCPCS: 11042; A6021; A6212 ==

== ENCOUNTER → 2022-06-17 11:00 | Outpatient (BNVA) | payer MEDICARE, OTHER, SELFPAY | PROVIDERS: PCP Physical Medicine & Rehabilitation; Visit Provider Thoracic Surgery (Cardiothoracic Vascular Surgery) | DX: I96 Gangrene, not elsewhere classified (principal); L89.154 Pressure ulcer of sacral region, stage 4 | CPT/HCPCS: 97597; A6021; A6212 ==

== ENCOUNTER → 2022-06-24 11:05 | Outpatient (BNVA) | payer MEDICARE, OTHER, SELFPAY | PROVIDERS: PCP Physical Medicine & Rehabilitation; Visit Provider Thoracic Surgery (Cardiothoracic Vascular Surgery) | DX: I96 Gangrene, not elsewhere classified (principal); L89.154 Pressure ulcer of sacral region, stage 4 | CPT/HCPCS: 11042; A6021; A6212 ==

== ENCOUNTER → 2022-07-08 11:07 | Outpatient (BNVA) | payer MEDICARE, OTHER, SELFPAY | PROVIDERS: PCP Physical Medicine & Rehabilitation; Visit Provider Thoracic Surgery (Cardiothoracic Vascular Surgery) | DX: I96 Gangrene, not elsewhere classified (principal); L89.154 Pressure ulcer of sacral region, stage 4 | CPT/HCPCS: 11042; A6212 ==

== ENCOUNTER → 2022-07-29 10:42 | Outpatient (BNVA) | payer MEDICARE, OTHER, SELFPAY | PROVIDERS: PCP Physical Medicine & Rehabilitation; Visit Provider Thoracic Surgery (Cardiothoracic Vascular Surgery) | DX: I96 Gangrene, not elsewhere classified (principal); L89.154 Pressure ulcer of sacral region, stage 4 | CPT/HCPCS: 11042; A6021; A6212 ==

== ENCOUNTER → 2022-08-26 11:09 | Outpatient (BNVA) | payer MEDICARE, OTHER, SELFPAY | PROVIDERS: PCP Physical Medicine & Rehabilitation; Visit Provider Thoracic Surgery (Cardiothoracic Vascular Surgery) | DX: I96 Gangrene, not elsewhere classified (principal); L89.154 Pressure ulcer of sacral region, stage 4 | CPT/HCPCS: 11042; A6021; A6212 ==

== ENCOUNTER → 2022-09-04 11:02 | Outpatient (BNVA) | payer MEDICARE, OTHER, SELFPAY | PROVIDERS: PCP Physical Medicine & Rehabilitation; Visit Provider Thoracic Surgery (Cardiothoracic Vascular Surgery) | DX: I96 Gangrene, not elsewhere classified (principal); L89.154 Pressure ulcer of sacral region, stage 4 | CPT/HCPCS: 15271; A6021; Q4187 ==

== ENCOUNTER → 2022-09-14 12:09 | Outpatient (BNVA) | payer MEDICARE, OTHER, SELFPAY | PROVIDERS: Visit Provider Internal Medicine | DX: I48.91 Unspecified atrial fibrillation (principal); Z79.01 Long term (current) use of anticoagulants | CPT/HCPCS: 93005; 99204 ==

== ENCOUNTER → 2022-09-18 13:00 | Outpatient (BNVA) | payer MEDICARE, OTHER, SELFPAY | PROVIDERS: Visit Provider Thoracic Surgery (Cardiothoracic Vascular Surgery) | DX: I96 Gangrene, not elsewhere classified (principal); L89.154 Pressure ulcer of sacral region, stage 4 | CPT/HCPCS: 15271; A6021; A6206; Q4187 ==

== ENCOUNTER → 2022-09-25 13:03 | Outpatient (BNVA) | payer MEDICARE, OTHER, SELFPAY | PROVIDERS: Visit Provider Thoracic Surgery (Cardiothoracic Vascular Surgery) | DX: I96 Gangrene, not elsewhere classified (principal); L89.154 Pressure ulcer of sacral region, stage 4 | CPT/HCPCS: 15271; Q4187 ==

== ENCOUNTER → 2022-10-02 13:03 | Outpatient (BNVA) | payer MEDICARE, OTHER, SELFPAY | PROVIDERS: Visit Provider Thoracic Surgery (Cardiothoracic Vascular Surgery) | DX: I96 Gangrene, not elsewhere classified (principal); L89.154 Pressure ulcer of sacral region, stage 4 | CPT/HCPCS: 15271; A6021; A6206; A6250; Q4187 ==

== ENCOUNTER → 2022-10-09 13:01 | Outpatient (BNVA) | payer MEDICARE, OTHER, SELFPAY | PROVIDERS: Visit Provider Thoracic Surgery (Cardiothoracic Vascular Surgery) | DX: I96 Gangrene, not elsewhere classified (principal); L89.154 Pressure ulcer of sacral region, stage 4 | CPT/HCPCS: 15271; A6021; A6206; A6250; Q4187 ==

== ENCOUNTER → 2022-10-16 13:23 | Outpatient (BNVA) | payer MEDICARE, OTHER, SELFPAY | PROVIDERS: Visit Provider Thoracic Surgery (Cardiothoracic Vascular Surgery) | DX: I96 Gangrene, not elsewhere classified (principal); L89.154 Pressure ulcer of sacral region, stage 4 | CPT/HCPCS: 15271; A6021; A6206; A6250; Q4187 ==

== ENCOUNTER → 2022-10-23 12:59 | Outpatient (BNVA) | payer MEDICARE, OTHER, SELFPAY | PROVIDERS: Visit Provider Thoracic Surgery (Cardiothoracic Vascular Surgery) | DX: I96 Gangrene, not elsewhere classified (principal); L89.154 Pressure ulcer of sacral region, stage 4 | CPT/HCPCS: 15271; A6021; A6206; A6250; Q4187 ==

== ENCOUNTER → 2022-10-30 13:06 | Outpatient (BNVA) | payer MEDICARE, OTHER, SELFPAY | PROVIDERS: Visit Provider Thoracic Surgery (Cardiothoracic Vascular Surgery) | DX: I96 Gangrene, not elsewhere classified (principal); L89.154 Pressure ulcer of sacral region, stage 4 | CPT/HCPCS: 15271; A6206; Q4187 ==

== ENCOUNTER → 2022-11-06 13:08 | Outpatient (BNVA) | payer MEDICARE, OTHER, SELFPAY | PROVIDERS: Visit Provider Thoracic Surgery (Cardiothoracic Vascular Surgery) | DX: I96 Gangrene, not elsewhere classified (principal); L89.154 Pressure ulcer of sacral region, stage 4 | CPT/HCPCS: 15271; A6021; A6206; A6250; Q4187 ==

== ENCOUNTER → 2022-11-13 13:03 | Outpatient (BNVA) | payer MEDICARE, OTHER, SELFPAY | PROVIDERS: Visit Provider Thoracic Surgery (Cardiothoracic Vascular Surgery) | DX: I96 Gangrene, not elsewhere classified (principal); L89.154 Pressure ulcer of sacral region, stage 4 | CPT/HCPCS: 15271; A6021; A6206; A6250; Q4187 ==

== ENCOUNTER → 2022-11-20 12:59 | Outpatient (BNVA) | payer MEDICARE, OTHER, SELFPAY | PROVIDERS: Visit Provider Thoracic Surgery (Cardiothoracic Vascular Surgery) | DX: L89.154 Pressure ulcer of sacral region, stage 4 (principal) | CPT/HCPCS: 11042 ==

== ENCOUNTER → 2022-12-04 13:07 | Outpatient (BNVA) | payer MEDICARE, OTHER, SELFPAY | PROVIDERS: Visit Provider Thoracic Surgery (Cardiothoracic Vascular Surgery) | DX: L89.154 Pressure ulcer of sacral region, stage 4 (principal) | CPT/HCPCS: 97597 ==

== ENCOUNTER → 2022-12-18 13:14 | Outpatient (BNVA) | payer MEDICARE, OTHER, SELFPAY | PROVIDERS: Visit Provider Thoracic Surgery (Cardiothoracic Vascular Surgery) | DX: L89.154 Pressure ulcer of sacral region, stage 4 (principal) | CPT/HCPCS: 11042 ==

== ENCOUNTER → 2022-12-31 13:21 | Outpatient (BNVA) | payer MEDICARE, OTHER, SELFPAY | PROVIDERS: Visit Provider Emergency Medicine | DX: I71.40 Abdominal aortic aneurysm, without rupture, unspecified (principal); D68.9 Coagulation defect, unspecified; R10.9 Unspecified abdominal pain | CPT/HCPCS: 85018 ==

== ENCOUNTER → 2023-01-15 14:37 | Outpatient (BNVA) | payer MEDICARE, OTHER, SELFPAY | PROVIDERS: Visit Provider Thoracic Surgery (Cardiothoracic Vascular Surgery) | DX: I96 Gangrene, not elsewhere classified (principal); L89.154 Pressure ulcer of sacral region, stage 4 | CPT/HCPCS: 11042 ==

== ENCOUNTER → 2023-01-22 13:18 | Outpatient (BNVA) | payer MEDICARE, OTHER, SELFPAY | PROVIDERS: Visit Provider Thoracic Surgery (Cardiothoracic Vascular Surgery) | DX: I96 Gangrene, not elsewhere classified (principal); L89.154 Pressure ulcer of sacral region, stage 4 | CPT/HCPCS: 97597 ==

== ENCOUNTER → 2023-02-05 13:18 | Outpatient (BNVA) | payer MEDICARE, OTHER, SELFPAY | PROVIDERS: Visit Provider Thoracic Surgery (Cardiothoracic Vascular Surgery) | DX: I96 Gangrene, not elsewhere classified (principal); L89.154 Pressure ulcer of sacral region, stage 4 | CPT/HCPCS: 97597 ==

== ENCOUNTER → 2023-02-19 13:03 | Outpatient (BNVA) | payer MEDICARE, OTHER, SELFPAY | PROVIDERS: Visit Provider Thoracic Surgery (Cardiothoracic Vascular Surgery) | DX: I96 Gangrene, not elsewhere classified (principal); L89.154 Pressure ulcer of sacral region, stage 4 | CPT/HCPCS: 97597 ==

== ENCOUNTER → 2023-03-05 12:59 | Outpatient (BNVA) | payer MEDICARE, OTHER, SELFPAY | PROVIDERS: Visit Provider Thoracic Surgery (Cardiothoracic Vascular Surgery) | DX: I96 Gangrene, not elsewhere classified (principal); L89.154 Pressure ulcer of sacral region, stage 4 | CPT/HCPCS: 97597 ==

== ENCOUNTER → 2023-03-19 13:06 | Outpatient (BNVA) | payer MEDICARE, OTHER, SELFPAY | PROVIDERS: Visit Provider Thoracic Surgery (Cardiothoracic Vascular Surgery) | DX: I96 Gangrene, not elsewhere classified (principal); L89.154 Pressure ulcer of sacral region, stage 4 | CPT/HCPCS: 97597 ==

== ENCOUNTER → 2023-04-16 12:55 | Outpatient (BNVA) | payer MEDICARE, OTHER, SELFPAY | PROVIDERS: Visit Provider Thoracic Surgery (Cardiothoracic Vascular Surgery) | DX: L89.154 Pressure ulcer of sacral region, stage 4 (principal) | CPT/HCPCS: 97597 ==

== ENCOUNTER → 2023-04-30 13:05 | Outpatient (BNVA) | payer MEDICARE, OTHER, SELFPAY | PROVIDERS: Visit Provider Thoracic Surgery (Cardiothoracic Vascular Surgery) | DX: I96 Gangrene, not elsewhere classified (principal); L89.154 Pressure ulcer of sacral region, stage 4 | CPT/HCPCS: 97597 ==

== ENCOUNTER → 2023-05-21 14:43 | Outpatient (BNVA) | payer MEDICARE, OTHER, SELFPAY | PROVIDERS: Visit Provider Thoracic Surgery (Cardiothoracic Vascular Surgery) | DX: L89.154 Pressure ulcer of sacral region, stage 4 (principal) | CPT/HCPCS: 97597; A6197 ==

== ENCOUNTER → 2023-06-04 13:41 | Outpatient (BNVA) | payer MEDICARE, OTHER, SELFPAY | PROVIDERS: Visit Provider Thoracic Surgery (Cardiothoracic Vascular Surgery) | DX: L89.154 Pressure ulcer of sacral region, stage 4 (principal) | CPT/HCPCS: 97597 ==

== ENCOUNTER → 2023-06-18 13:20 | Outpatient (BNVA) | payer MEDICARE, OTHER, SELFPAY | PROVIDERS: Visit Provider Nurse Practitioner Family | DX: L89.154 Pressure ulcer of sacral region, stage 4 (principal) | CPT/HCPCS: 11042; A6251 ==

== ENCOUNTER → 2023-07-02 13:17 | Outpatient (BNVA) | payer MEDICARE, OTHER, SELFPAY | PROVIDERS: Visit Provider Thoracic Surgery (Cardiothoracic Vascular Surgery) | DX: L89.154 Pressure ulcer of sacral region, stage 4 (principal) | CPT/HCPCS: 11042 ==

== ENCOUNTER → 2023-07-29 13:48 | Outpatient (BNVA) | payer MEDICARE, OTHER, SELFPAY | PROVIDERS: Visit Provider Internal Medicine | DX: I48.91 Unspecified atrial fibrillation (principal); Z79.01 Long term (current) use of anticoagulants | CPT/HCPCS: 99214 ==

== ENCOUNTER → 2023-07-30 12:58 | Outpatient (BNVA) | payer MEDICARE, OTHER, SELFPAY | PROVIDERS: Visit Provider Thoracic Surgery (Cardiothoracic Vascular Surgery) | DX: L89.154 Pressure ulcer of sacral region, stage 4 (principal) | CPT/HCPCS: 97597 ==

== ENCOUNTER → 2023-08-06 13:12 | Outpatient (BNVA) | payer MEDICARE, OTHER, SELFPAY | PROVIDERS: Visit Provider Thoracic Surgery (Cardiothoracic Vascular Surgery) | DX: I96 Gangrene, not elsewhere classified (principal); L89.154 Pressure ulcer of sacral region, stage 4 | CPT/HCPCS: 97597 ==

== ENCOUNTER → 2023-08-27 13:08 | Outpatient (BNVA) | payer MEDICARE, OTHER, SELFPAY | PROVIDERS: Visit Provider Thoracic Surgery (Cardiothoracic Vascular Surgery) | DX: L89.154 Pressure ulcer of sacral region, stage 4 (principal) | CPT/HCPCS: 11042 ==

== ENCOUNTER → 2023-09-10 12:54 | Outpatient (BNVA) | payer MEDICARE, OTHER, SELFPAY | PROVIDERS: Visit Provider Thoracic Surgery (Cardiothoracic Vascular Surgery) | DX: L89.154 Pressure ulcer of sacral region, stage 4 (principal) | CPT/HCPCS: 11042 ==

== ENCOUNTER → 2023-09-24 13:09 | Outpatient (BNVA) | payer MEDICARE, OTHER, SELFPAY | PROVIDERS: Visit Provider Thoracic Surgery (Cardiothoracic Vascular Surgery) | DX: L89.154 Pressure ulcer of sacral region, stage 4 (principal) | CPT/HCPCS: 11042 ==

== ENCOUNTER → 2023-10-08 11:24 | Outpatient (BNVA) | payer MEDICARE, OTHER, SELFPAY | PROVIDERS: Visit Provider Thoracic Surgery (Cardiothoracic Vascular Surgery) | DX: L89.154 Pressure ulcer of sacral region, stage 4 (principal) | CPT/HCPCS: 97597 ==

== ENCOUNTER → 2023-11-04 11:11 | Outpatient (BNVA) | payer MEDICARE, OTHER, SELFPAY | PROVIDERS: Visit Provider Thoracic Surgery (Cardiothoracic Vascular Surgery) | DX: L89.154 Pressure ulcer of sacral region, stage 4 (principal) | CPT/HCPCS: 97597 ==

== ENCOUNTER → 2023-11-18 10:45 | Outpatient (BNVA) | payer MEDICARE, OTHER, SELFPAY | PROVIDERS: Visit Provider Thoracic Surgery (Cardiothoracic Vascular Surgery) | DX: L89.154 Pressure ulcer of sacral region, stage 4 (principal) | CPT/HCPCS: 97597 ==

== ENCOUNTER → 2023-12-02 12:59 | Outpatient (BNVA) | payer MEDICARE, OTHER, SELFPAY | PROVIDERS: Visit Provider Thoracic Surgery (Cardiothoracic Vascular Surgery) | DX: I96 Gangrene, not elsewhere classified (principal); L89.154 Pressure ulcer of sacral region, stage 4 | CPT/HCPCS: 97597 ==

== ENCOUNTER → 2023-12-16 13:05 | Outpatient (BNVA) | payer MEDICARE, OTHER, SELFPAY | PROVIDERS: Visit Provider Thoracic Surgery (Cardiothoracic Vascular Surgery) | DX: L89.154 Pressure ulcer of sacral region, stage 4 (principal) | CPT/HCPCS: 97597 ==

== ENCOUNTER → 2023-12-30 11:20 | Outpatient (BNVA) | payer MEDICARE, OTHER, SELFPAY | PROVIDERS: Visit Provider Thoracic Surgery (Cardiothoracic Vascular Surgery) | DX: L89.154 Pressure ulcer of sacral region, stage 4 (principal) | CPT/HCPCS: 97597 ==

== ENCOUNTER → 2024-01-13 11:29 | Outpatient (BNVA) | payer MEDICARE, OTHER, SELFPAY | PROVIDERS: Visit Provider Thoracic Surgery (Cardiothoracic Vascular Surgery) | DX: L89.154 Pressure ulcer of sacral region, stage 4 (principal) | CPT/HCPCS: 97597 ==

== ENCOUNTER → 2024-02-09 11:00 | Outpatient (BNVA) | payer MEDICARE, OTHER, SELFPAY | PROVIDERS: Visit Provider Thoracic Surgery (Cardiothoracic Vascular Surgery) | DX: L89.154 Pressure ulcer of sacral region, stage 4 (principal) | CPT/HCPCS: 97597 ==

== ENCOUNTER → 2024-02-23 11:11 | Outpatient (BNVA) | payer MEDICARE, OTHER, SELFPAY | PROVIDERS: Visit Provider Thoracic Surgery (Cardiothoracic Vascular Surgery) | DX: L89.154 Pressure ulcer of sacral region, stage 4 (principal) | CPT/HCPCS: 97597 ==

== ENCOUNTER → 2024-03-15 10:58 | Outpatient (BNVA) | payer MEDICARE, OTHER, SELFPAY | PROVIDERS: Visit Provider Thoracic Surgery (Cardiothoracic Vascular Surgery) | DX: L89.154 Pressure ulcer of sacral region, stage 4 (principal) | CPT/HCPCS: 97597 ==

== ENCOUNTER → 2024-03-29 11:10 | Outpatient (BNVA) | payer MEDICARE, OTHER, SELFPAY | PROVIDERS: Visit Provider Thoracic Surgery (Cardiothoracic Vascular Surgery) | DX: L89.154 Pressure ulcer of sacral region, stage 4 (principal) | CPT/HCPCS: 97597 ==

== ENCOUNTER → 2024-04-12 11:15 | Outpatient (BNVA) | payer MEDICARE, OTHER, SELFPAY | PROVIDERS: Visit Provider Thoracic Surgery (Cardiothoracic Vascular Surgery) | DX: L89.154 Pressure ulcer of sacral region, stage 4 (principal) | CPT/HCPCS: 97597 ==

== ENCOUNTER → 2024-04-26 11:13 | Outpatient (BNVA) | payer MEDICARE, OTHER, SELFPAY | PROVIDERS: Visit Provider Thoracic Surgery (Cardiothoracic Vascular Surgery) | DX: L89.154 Pressure ulcer of sacral region, stage 4 (principal) | CPT/HCPCS: 97597 ==

== ENCOUNTER → 2024-04-27 15:15 | Outpatient (BNVA) | payer MEDICARE, OTHER, SELFPAY | PROVIDERS: Visit Provider Internal Medicine | DX: I48.91 Unspecified atrial fibrillation (principal) | CPT/HCPCS: 99214 ==

== ENCOUNTER → 2024-05-10 11:15 | Outpatient (BNVA) | payer MEDICARE, OTHER, SELFPAY | PROVIDERS: Visit Provider Thoracic Surgery (Cardiothoracic Vascular Surgery) | DX: L89.154 Pressure ulcer of sacral region, stage 4 (principal) | CPT/HCPCS: 97597; A6021 ==

== ENCOUNTER → 2024-05-24 11:15 | Outpatient (BNVA) | payer MEDICARE, OTHER, SELFPAY | PROVIDERS: Visit Provider Thoracic Surgery (Cardiothoracic Vascular Surgery) | DX: L89.154 Pressure ulcer of sacral region, stage 4 (principal) | CPT/HCPCS: 97597; A6021 ==

== ENCOUNTER → 2024-06-07 11:09 | Outpatient (BNVA) | payer MEDICARE, OTHER, SELFPAY | PROVIDERS: Visit Provider Thoracic Surgery (Cardiothoracic Vascular Surgery) | DX: L89.154 Pressure ulcer of sacral region, stage 4 (principal) | CPT/HCPCS: 97597 ==

== ENCOUNTER → 2024-07-05 11:00 | Outpatient (BNVA) | payer MEDICARE, OTHER, SELFPAY | PROVIDERS: Visit Provider Thoracic Surgery (Cardiothoracic Vascular Surgery) | DX: L89.154 Pressure ulcer of sacral region, stage 4 (principal) | CPT/HCPCS: 97597; A6021 ==

== ENCOUNTER → 2024-07-19 11:02 | Outpatient (BNVA) | payer MEDICARE, OTHER, SELFPAY | PROVIDERS: Visit Provider Thoracic Surgery (Cardiothoracic Vascular Surgery) | DX: L89.154 Pressure ulcer of sacral region, stage 4 (principal) | CPT/HCPCS: A6021 ==

== ENCOUNTER → 2024-09-07 10:47 | Outpatient (BNVA) | payer MEDICARE, OTHER, SELFPAY | PROVIDERS: Visit Provider Thoracic Surgery (Cardiothoracic Vascular Surgery) | DX: Z09 Encounter for follow-up examination after completed treatment for conditions other than malignant neoplasm (principal); Z87.2 Personal history of diseases of the skin and subcutaneous tissue | CPT/HCPCS: 99212 ==

== ENCOUNTER → 2025-01-25 13:54 | Outpatient (BNVA) | payer MEDICARE, OTHER, SELFPAY | PROVIDERS: Visit Provider Internal Medicine | DX: I48.91 Unspecified atrial fibrillation (principal); Z79.01 Long term (current) use of anticoagulants | CPT/HCPCS: 99213 ==